=== PATIENT | female | born 1960 | race Caucasian/White ===

== ENCOUNTER 2017-01-14 08:45 | Emergency (ER) | payer OTHER, MEDICARE ==
[~2017-01-14] VITALS: Ht 170.2 cm; Wt 86.4 kg
[2017-01-14 08:50] VITALS: BP 113/73; PULSE 103; RESP 16; O2SAT 97
[2017-01-14] MEDS ORDERED: OMEP20CA11 PO (09:03)
[2017-01-14] MEDS ORDERED: DICL100G30 TOP (09:03)
[2017-01-14] MEDS ORDERED: CYCL10TA9 PO (09:03)
[2017-01-14] MEDS ORDERED: TRAM50TA2 PO (09:03)
[2017-01-14] MEDS ORDERED: GABA-502 PO ×2 (09:03)
--- NOTE | 2017-01-14 09:07 | ED.REPORT ---
HPI-Headache Date of Service January 14, 2017 ED Provider: The patient is a 56 year old female with history of fibromyalgia who presents to the emergency department complaining of a headache that began 5 days ago.She has tried aspirin, Aleve, and Excedrin, all without any relief. She has also noticed nasal congestion and sinus pressure that began about 3 weeks ago. She took Zyrtec on Friday and her headache started later that day. She has also noticed an intermittent subjective fever, tinnitus, and nausea. She denies vomiting, diarrhea, cough, chest pain or shortness of breath. She has had migraines in the past but has not had one in quite some time. Nursing Notes Stated Complaint: HEADACHE Chief Complaint: Neuro Symptoms/ Deficits Nursing Notes Reviewed: Yes Allergies: Coded Allergies: codeine (Verified Allergy, Unknown, 01/14/17) Scheduled Cyclobenzaprine (Cyclobenzaprine) 10 Mg Tablet 10 MG PO HS Gabapentin (Gabapentin) 300 Mg Capsule 300 MG PO QAM Gabapentin (Gabapentin) 300 Mg Capsule 300 MG PO HS Omeprazole (Omeprazole) 20 Mg Capsule.dr 20 MG PO DAILY Scheduled PRN Diclofenac Sodium (Diclofenac Sodium) 1 % Gel..gram. 1 APPLIC TOP TID PRN PRN For Pain Tramadol (Tramadol) 50 Mg Tablet 50 MG PO TID PRN PRN For Pain General Time Seen by MD: 09:06 Chief Complaint Headache Hx Obtained From: Patient Arrived By: Walk-in Sudden in Onset?: No Onset Occurred: 5 days ago Symptom Duration: Since onset Location: : Generalized Quality: Painful Severity: Current: Moderate Severity: Maximum: Moderate Recent Healthcare: No recent hospitalization Similar Sx Previous: No Past Medical History Past Medical History Fibromyalgia on 900 mg Gabapentin, 50 mg Tramadol 2-3 times daily, and Flexeril Migraines GERD Past Surgical History Back surgery Family History Noncontributory Smoking History Unknown if Ever Smoker Social History Other Social History: Good social support, , Local resident Ambulatory Status Independent Review of Systems Constitutional: Reports: Fever (subjective) Ears / Nose / Throat: Reports: Nasal congestion, Sinus problem GI: Reports: Nausea, Denies: Diarrhea, Vomiting Neurologic: Reports: Headache Complete sys rev & neg: except as marked. Respiratory: Denies: Non-productive cough, Prod cough, bloody, Prod cough, brown, Prod cough, clear, Prod cough, green, Prod cough, white, Prod cough, yellow Cardiovascular: Denies: Chest pain Physical Exam Initial Vital Signs Vital Signs (First) Date Time Temp Pulse Resp B/P Pulse Ox O2 Delivery O2 Flow Rate FiO2 01/14/17 08:50 37.7 103 16 113/73 97 Initial VS: Reviewed Respiratory: Breath sounds normal, Clear to auscultation, No respiratory distress Cardiovascular: Regular rate & rhythm, Heart sounds normal, Intact distal pulses Abdomen / GI: Soft, Non-tender, No guarding, No rebound, No distention Lymphatic: No lymphadenopathy Extremities: Vascular intact, Neuro intact, No swelling, No tenderness Skin: Warm, Dry, No cyanosis Psychiatric: Mood/affect normal, Behavior normal, Normal thought content General/Constitutional: Awake, Alert Head / Eyes: Atraumatic, Normocephalic, PERRL, EOMI, No nystagmus, No photophobia, Conjunctiva NL, Temporal arteries NL Neck: Atraumatic, Supple, No meningismus, Full range of motion, No swelling, Non-tender, No masses Neurologic: Oriented X3, Speech NL, No motor deficits, No sensory deficits ENT: Airway patent, Mucous membranes moist Pharynx / Tonsils / Uvula: Negative: Pharyngeal erythema, Tonsillar erythema L , Tonsillar erythema R, Tonsillar exudate L, Tonsillar exudate R, Tonsillar swelling L, Tonsillar swelling R Right Ear / Mastoid: Positive: Fluid behind TM clear, Negative: Tympanic memb perforated, Tympanic membrane bulging, Tympanic membrane red Left Ear / Mastoid: Negative: Tympanic memb perforated, Tympanic memb retracted , Tympanic membrane bulging, Tympanic membrane red Posterior nasal drainage. Maxillary and frontal sinus tenderness. Re-Eval/Medical Decision Source of Hx: Old records Re-Evaluation/Progress : Time of Eval: 09:20 Re-Evaluation/Progress Note: Discussed exam findings, diagnosis, and plan for discharge. Counseled Regarding: Diagnosis, Need for follow-up, When/why to return to ED Discharge & Departure Impression: Primary Impression: Sinus infection Sinusitis location: unspecified location Chronicity: acute Recurrence: non -recurrent Qualified Code: J01.90 - Acute sinusitis, unspecified Additional Impression: Sinus headache Disposition: Home Discharge Condition All VS Reviewed: Yes Condition: Stable Patient Instructions: Sinusitis (ED) Additional Instructions: Thank you for entrusting us with your care today. Your symptoms are consistent with a sinus headache. Here are 5 things that will help you: 1. Stop smoking. 2. Drink plenty of fluids throughout the day. 3. Nasal irrigation. You can use a Neti Pot or a nasal syringe that you can purchase at the store. You should do this 2-3 times each day. This can be uncomfortable but it will help. 4. You should take an over the counter decongestant. Do not take antihistamines , this can make your headache and sinus pressure worse. 5. Take the antibiotic (trimethoprim/sulfamethoxazole was ( as prescribed for 2 weeks. If you are not doing better in 1 week you should be seen again and start a different antibiotic such as Ceftin. If the 2 week pam comes and you are not all the way better you will need to refill the prescription for another week. I also recommend that you take 800 mg ibuprofen every 8 hours for your pain and discomfort. Seek care sooner for any new or concerning symptoms. Referrals: Kimani Calvert MD (PCP) Bird Sena MD Attestation Portions of this note were transcribed by Sylvia Gonzalez. I, Dr. Grewal personally performed the history, physical exam and medical decision-making; I reviewed and confirmed the accuracy of the information in the transcribed note. Signed by: Jeff Cerda, 01/14/2017 at 0940. copies to: Kimani Calvert MD; Bird Sena MD, Kirk H MD January 14, 2017 09:07 Sylvia Gonzalez January 14, 2017 09:08
[2017-01-14] MEDS ORDERED: SULF1TAB7 PO (09:37)
== END 2017-01-14 09:40 | disposition home or self-care (01) ==
LOC: SED 08:45
DX: J01.90 Acute sinusitis, unspecified (principal); R51 Headache; K21.9 Gastro-esophageal reflux disease without esophagitis; Z88.8 Allergy status to other drugs, medicaments and biological substances; M79.7 Fibromyalgia; Z88.5 Allergy status to narcotic agent

== ENCOUNTER 2017-02-10 10:54 | Day surgery (SDC) | payer OTHER, MEDICARE ==
[~2017-02-10] VITALS: Ht 170.2 cm; Wt 87.0 kg
[~2017-02-10 10:54] MED LIST: 0.9% Sodium Chloride 1,000 ML IV SCH; CYCL10TA9 PO; GABA-502 PO; MELA1TAB21 PO; MULT-1018 PO; OMEP20CA11 PO; SENN-133 PO; Sodium Chloride LOK Flush 10 mL Syringe IV PRN; TRAM50TA2 PO; fentaNYL-PF 50 mCg/mL 2 mL Inj IVPUSH PRN
[2017-02-10 11:16] VITALS: BP 116/57; PULSE 83; RESP 16; O2SAT 96
[2017-02-10] MEDS ORDERED: OMEG1CAP56 PO (11:30)
[2017-02-10 12:26] VITALS: BP 105/66; PULSE 86; RESP 12; O2SAT 96
--- NOTE | 2017-02-10 12:31 | PCM.ENDCOL ---
Colonoscopy Date of Service: Feb 10, 2017 Physician Scotty Haynes MD Pre Procedure Diagnosis: Screening colonoscopy Post Procedure Dx & Findings: Polyp hemorrhoids and diverticula Procedure Colonoscopy PROCEDURE IN DETAIL: Prep adequate Withdrawal time 12 minutes After unremarkable rectal examination the Olympus video colonoscope was inserted patient's anal canal and was advanced to cecum. Landmarks were identified including the ileocecal valve and appendiceal orifice. Scope was withdrawn systematically. Visualized colonic mucosa showed healthy shiny mucosa with normal healthy-appearing vasculature. In the transverse colon, there was a 2 mm polyp which was removed completely using cold snare. In the sigmoid colon, there were total of 4 polyps. The sizes varied between 2-4 mm. Using all removed completely using cold snare. Patient had diverticuli from the descending colon to the distal sigmoid colon. There were few and medium size. In the rectum retroflexion was done which showed hemorrhoids. Anal canal was inspected carefully on the way out and hemorrhoids noted. Impression Polyps 5 status post complete removal Diverticuli Hemorrhoids Recommendation Repeat colonoscopy 3 years Diverticular diet Presedation Assessment Risks and Benefits Informed consent was obtained from the patient after all risks and benefits including but not limited to drug reaction, infection, pain, bleeding, perforation, as well as alternatives were discussed. Patient monitoring Continuous pulse oximetry, cardiac monitoring, blood pressure monitoring, IV access, and oxygen at 2L per nasal cannula. Periprocedural Fentanyl: Fentanyl 150mcg Incrementally Midazolam: Midazolam 5mg Incrementally Complications There were no periprocedural complications identified. Post Procedure Plan Post Procedure Recommendations 1. Restrict activities today. 2. Resume normal activities in the morning. 3. Resume medications. 4. Patient informed of normal post procedure side effects as bloating, drowsiness, blood streaking in the stool. 5. average risk CRCS. If colon polyps come back as: -Hyperplastic- can repeat colonoscopy in 10 years -Tubular adenoma- repeat colonoscopy in 5 years -Tubulovillous/villous adenoma- repeat colonoscopy in 3 years -If any dysplasia- return to clinic as soon as possible 6. Please don't hesitate to call me with any questions. Scotty Haynes MD Feb 10, 2017 12:31
[2017-02-10 12:37] VITALS: BP 97/65; PULSE 96; RESP 12; O2SAT 97
[2017-02-10 12:40] VITALS: BP 107/63; PULSE 68; RESP 14; O2SAT 96
--- NOTE | 2017-02-11 10:43 | PATH ---
SURGICAL PATHOLOGY Attending Physician:Scotty Haynes M.D. CASE STATUS: Signed Out PATIENT NAME: DANIEL TRAMMELL PID: [id number] : 1960 DATE COLLECTED:02/10/2017 21:39 SPECIMEN: 1: Colon, Polyp 2: Colon, Polyp CLINICAL HISTORY: 1). TRANSVERSE COLON POLYP 2). SIGMOID COLON POLYPS FINAL DIAGNOSIS: 1.TRANSVERSE COLON POLYP: TUBULAR ADENOMA. 2.SIGMOID COLON POLYPS: TUBULAR ADENOMA INVOLVING MULTIPLE BIOPSY FRAGMENTS. HYPERPLASTIC POLYP INVOLVING SINGLE BIOPSY FRAGMENT. ICD10 D12.5 GROSS DESCRIPTION: The specimen is received in two formalin filled containers labeled with the patient's name. 1). The specimen is sublabeled "transverse colon polyp" and consists of a 0.2 x 0.2 x 0.2 CM portion of tissue which is entirely submitted in cassette 1A. 2). The specimen is sublabeled "sigmoid colon polyps" and consists of 4 portions of tissue and possible debris which aggregate to 0.6 x 0.6 x 0.4 CM. The specimen is entirely submitted in cassette 2A. 02/10/2017 [facility] MICRO DESCRIPTION: See diagnosis. ICD-9 CODES: CPT CODES: 1: 78206 2: 38816 Electronically Signed Out Audi Nunez MD [facility] Pathology [facility] [address], [place] [address] Technical component performed at [facility], [facility] [address], [place], [address]
== END 2017-02-10 23:59 | disposition home or self-care (01) ==
LOC: END 10:54
PROVIDERS: ATTEND Internal Medicine
DX: Z12.11 Encounter for screening for malignant neoplasm of colon (principal); D12.3 Benign neoplasm of transverse colon; D12.5 Benign neoplasm of sigmoid colon; K57.30 Diverticulosis of large intestine without perforation or abscess without bleeding; K64.9 Unspecified hemorrhoids; E78.5 Hyperlipidemia, unspecified; E11.9 Type 2 diabetes mellitus without complications; K21.9 Gastro-esophageal reflux disease without esophagitis; M79.7 Fibromyalgia; F17.210 Nicotine dependence, cigarettes, uncomplicated; Z90.3 Acquired absence of stomach [part of]
CPT/HCPCS: 45385; 99153; G0500; J2250; J3010; J7030

== ENCOUNTER 2017-03-27 08:54 | Day surgery (SDC) | payer OTHER, MEDICARE ==
[~2017-03-27] VITALS: Ht 167.6 cm; Wt 87.8 kg
[2017-03-27] VITALS (10 sets, daily range): BP systolic 92–143; BP diastolic 44–82; PULSE 70–113; RESP 10–23; O2SAT 94–99
[~2017-03-27 08:54] MED LIST changes: -0.9% Sodium Chloride 1,000 ML IV SCH; +DICL100G8 TOPICAL; +Lactated Ringer's 1,000 ML IV SCH; +MELA10TA2 PO; -MELA1TAB21 PO; +OMEG1CAP56 PO; -Sodium Chloride LOK Flush 10 mL Syringe IV PRN; -fentaNYL-PF 50 mCg/mL 2 mL Inj IVPUSH PRN
[2017-03-27] MEDS ORDERED: Dexamethasone 4 mg/mL Inj ONE (08:55)
[2017-03-27] MEDS ORDERED: fentaNYL-PF 50 mCg/mL 2 mL Inj ONE (08:55)
[2017-03-27] MEDS ORDERED: Propofol 10,000 mCg/mL 20 mL Inj ONE (08:55)
--- NOTE | 2017-03-27 10:51 | PCM.HPANE ---
Patient Data Surgeon Admitting Provider: Attending Provider:Marcelo Canada MD Primary Care Physician:Kimani Calvert MD Other Provider:Anabelle Riceingham Anesthesia Reason for Visit Right Breast Cancer Ht/WT & BMI Height (Feet): 5 Height (Inches): 6 Weight (Kilograms): 87.8 Body Mass Index 31.00 Allergies Coded Allergies: varenicline (Verified Allergy, Severe, bad dreams, night walking, hand swelling, 03/25/17) pregabalin (Verified Allergy, Intermediate, SWELLING, 03/25/17) codeine (Verified Allergy, Unknown, 03/25/17) duloxetine (Verified Adverse Reaction, Severe, SEVERE DEPRESSION, 03/25/17) Past Anesthesia History Anesthesia History: Denies:: Abnormal Airway, Anesthesia Reactions, Difficult Intubation, Fam Anesthesia Reaction, Fam Malignant Hypertherm, Malignant Hyperthermia Diabetes History Hx Diabetes?: No MRSA MRSA: No Medications Home Meds Incl Beta Renetta: No Reported Medications Diclofenac Gel (Voltaren Gel)100 Gm Tube1 Applic TOPICAL #1 TUBE 03/25/17 Melatonin 10 Mg Kevlxz15 Mg PO HS 03/11/17 Gracey-3 Fatty Acids/Fish Oil (Gracey 3 1,000 mg Softgel)1 Each Capsule1 Each PO DAILY 02/10/17 Multivitamin (Multi Vitamin Daily)1 Each Tablet1 Each PO DAILY 30 Days Ref 0 02/07/17 Sennosides (Senna)8.6 Mg Tablet8.6 Mg PO PRN For Constipation 02/07/17 Cyclobenzaprine 10 Mg Hmsbex04 Mg PO HS #AD 01/14/17 Gabapentin 300 Mg [id number] Mg PO TID #AD 01/14/17 Omeprazole 20 Mg Capsule.dr20 Mg PO DAILY #AD 01/14/17 Tramadol 50 Mg Owazuz69 Mg PO qd-tid PRN For Pain #AD 01/14/17 History History of ENT Problems?: No HEENT History: Positive for:: TMJ Denies:: Abnormal Airway Cataracts Difficult Intubation Dysphagia Glaucoma Hearing Problem Sinus Problem Denture Type: Full- Upper Full- Lower Teeth Condition: No Teeth Hx of Heart Problems?: No Cardiovascular History: Denies:: AICD Abdominal Aortic Aneurism Atrial Fibrillation Cardiac Surgery Chest Pain Congestive Heart Failure Coronary Artery Disease Edema Heart Murmur Hypertension Irregular Heartbeat Pacemaker Peripheral Vascular Rheumatic Fever Thrombophlebitis Valvular Heart Disease Hx of Respiratory Problem?: No Respiratory History: Denies:: Asthma COPD Chest Surgery Cough Dyspnea Emphysema Hemoptysis Pneumonia Pulmonary Embolism Tuberculosis Use of C-PAP Machine Use of Inhalers / NEBS Hx Neurologic Problems?: Yes Neurological History: Positive for:: Dizziness Denies:: Alzheimer's Disease CVA Dementia Headaches Multiple Sclerosis Parkinson's Disease Seizures TIA Hx of GI Problems?: Yes Hx of Problems?: No Genitourinary History: Denies:: HX of Hemodialysis Kidney Stones Urinary Tract Infection HX of Peritoneal Dialysis: No Female Hx: Positive for:: Endometriosis Problems with Breasts? (reason for admission) Denies:: Currently (MENOPAUSE) Pelvic Inflammatory Skin History: Denies:: History Skin Disorders? Pressure Ulcers Hx Musculoskeletal Problems?: Yes Musculoskeletal History: Positive for:: Back Injury (L5- S1 Fusion 2016) Fibromyalgia Rheumatoid Arthritis Denies:: Degenerative Joint Joint Replacement Musculoskeletal Trauma Myasthenia Gravis Osteoarthritis Systemic Lupus Hx of Psycho/Social Problems?: No Psycho Social History: Denies:: Anxiety Bipolar Disorder Hx Depression Hx Surgeries?: Yes Hx Any Other Health Problems?: No Other History: Positive for:: Cancer (Breast) Hospitalization Denies:: Endocrine Disease Thyroid Disease History Blood Transfusions: Positive for:: Accept Blood Products? Denies:: Blood Transfusions Hx Diabetes: No Hx Alcohol Use: NoHx Substance Use: Yes (CANNABIS PRN) Smoking Status: Former Smoker Have You Smoked inLast 12 mo: No Stop/Bang S-Snoring: Do You Snore Loudly: No T-Tired: feel tired, fatigued: Yes O-Obsered: Observed not breath: No P-Blood Pressure: treated: No B- Body Mass Index > 35 kg/m2: No A- Age over 50: Yes N- Neck Large Circumference: No G- Gender Male: No BRAD Total Score: 2 Risk Assessment Category Category 1A: Patient has history of documented sleep apnea, and HAS NOT received any narcotic, sedative or anesthesia administration during this stay. Category 1B: Patient has history of documented sleep apnea, and HAS received any narcotic , sedative or anesthesia administration during this stay Category 2: Patient has SUSPECTED Obstructive Sleep Apnea, and HAS received any narcotic , sedative or anesthesia administration during this stay. Category 3: Patient has SUSPECTED Obstructive Sleep Apnea and HAS NOT received narcotic, sedative or anesthesia administration during this stay. Category 4: Outpatient in Procedural Areas with known sleep apnea or who screen positive for High Risk via the STOP/BANG questionnaire. Exam Exam Vital Signs Vital Signs Date Time Temp Pulse Resp B/P Pulse Ox O2 Delivery O2 Flow Rate FiO2 03/27/17 09:15 36.2 72 18 92/44 95 Room Air General Appearance: Alert, Oriented X3, Cooperative HEENT/AIRWAY: MP 2 Lungs: Clear to Auscultation Heart: Exam Unremarkable Plan Impression Patient chart reviewed, patient interviewed and anesthestic plan with risks, benefits, and alternatives discussed, and informed consent obtained. ASA Physical Status: ASA2 Mod Systemic Disease Anesthetic Plan: GA Bene/Risks/Altern/Consents: Yes HP Complete Prior to Induction: Yes Dakota Kaplan MD Mar 27, 2017 10:51
[2017-03-27] MEDS ORDERED: Bupivacaine-MPF 0.5% 30 mL Inj INFILTRATE ONE (11:44)
[2017-03-27] MEDS ORDERED: Lactated Ringer's 1,000 ML IV ONE (12:12)
--- NOTE | 2017-03-27 12:23 | PCM.DISURG ---
Surgical Discharge Instruction Date of Service Mar 27, 2017 Dates of Hospitalization Date of Hospital Admission Providers Admitting Physician: Primary Care Physician: Kimani Calvert MD Attending Physician: Marcelo Canada MD Discharge Diagnosis Discharge Diagnosis Right breast cancer Diet Discharge Diet: No restrictions Activity Discharge Activity-General: No restrictions Dressing and Incisional Care Dressing Care: Allow Steri Stripes to fall off (or remove them in 10 days if they have not fallen off), Remove outer dressing after 24 hrs Hygiene: May shower after (24 hours) Follow Up Plan Follow Up Plan With Dr. Canada in 2 weeks for a wound check and review of pathology Call your provider for: Fever (over 101.5), Vomiting, Discharge @ incision, pus discharge Marcelo Canada MD Mar 27, 2017 12:23
[2017-03-27] MEDS ORDERED: HYDROcodone-APAP 5-325 mg Tablet PO PRN (12:25)
--- NOTE | 2017-03-27 12:30 | PCM.SURGOP ---
Surgical Operative Report Date of Service: Mar 27, 2017 Pre Operative Diagnosis Right breast cancer Post Operative Diagnosis Same Procedure: Wire localized right partial mastectomy, right axillary sentinel lymph node biopsy Surgeon and Computer Repair Instructor: Surgeon: Marcelo Canada MD Assistants: Pancho Curry DO PGY-1 Indication for Procedure 57-year-old woman who was found to have an 8 mm mass in the right breast central to the nipple on screening mammograms. Ultrasound showed a 1.1 cm mass. Her biopsy demonstrated a well-differentiated invasive ductal carcinoma, ER/AR positive, [id number]. MRI showed no additional disease. After discussion of risks and benefits, she agreed to proceed with wire localized right partial mastectomy, right axillary sentinel lymph node biopsy. Findings: The lesion was successfully localized with the wire. There was a single sentinel lymph node with an ex vivo count of 864, with a background count of 14. Procedure Details Preoperatively, the patient underwent right breast wire localization in the [facility]. In the preoperative area, she underwent breast radiotracer injection for sentinel node identification. She was then brought to the operating room where she underwent smooth induction of general anesthesia with an LMA. She was placed in the supine position with the right arm out, and was prepped and draped in wide sterile fashion. There was an excellent radiotracer signal in the right axilla, so methylene blue was not used. A procedural pause was performed according to the SCOAP checklist, and all were found to be in agreement. A radial incision was made from the areolar border to the wire entry site in the right lateral breast. Dissection was carried through the superficial breast parenchyma with electrocautery as skin flaps were raised superiorly and inferiorly. Circumferential dissection was then carried out using the wire as a guide. The wire was not encountered during dissection, but small hematoma was encountered just beyond the tip of the wire. Right breast tissue was excised, oriented with suture, and a specimen radiograph was obtained. This confirmed that the mammographic lesion and the clip had been successfully localized. That tissue was sent for permanent pathology labeled as right breast tissue. Because the hematoma from the wire tip had been encountered at the medial posterior aspect of dissection, a new posterior medial margin was obtained by grasping that tissue with a Kailee clamp, and excising approximately 1 cm of tissue in thickness from the posterior medial aspect of the cavity. That tissue was oriented with suture, and sent for permanent pathology. Hemostasis was adequate. The cavity was marked with hemoclips circumferentially. The breast parenchyma was closed with interrupted 3-0 Vicryl suture. A separate curvilinear incision was made at the inferior border of the hairbearing skin in the right axilla. Dissection was carried down through the subcutaneous tissue with electrocautery until the axillary fascia was incised. Using the gamma probe as a guide, the area of maximum radioactivity was dissected free from the surrounding tissue, which corresponded to a single sentinel node. It was normal in size. It was relatively soft. Ex vivo, the gamma count was 864. The background count in the right axilla was 14. That tissue was sent for permanent pathology, labeled as right axillary sentinel node. Hemostasis was adequate. The axillary fascia was closed with an interrupted 3-0 Vicryl suture. Both skin incisions were closed with running 4-0 Vicryl subcuticular suture. Steri-Strips and sterile dressings were applied. At the end the case all needle and sponge counts were correct 2. The patient was awakened from anesthesia without difficulty, and taken to the recovery room in satisfactory condition, having tolerated the procedure well. Complications There were no periprocedural complications identified. Surgical Specimen Removed: Yes Specimen sent to Pathology: Yes Surgical Specimen description: Right breast tissue. Right breast posterior medial margin. Right axillary sentinel lymph node. Anesthetic Plan: GA Grafts, Implants: None Output, Estimated Blood Loss: 20 Blood Administration during wilson: No Drains: None Catheters: None copies to: Kimani Calvert MD; Jacky Lucas MD, Joshua D MD Mar 27, 2017 12:30
[2017-03-27] MEDS ORDERED: Dexamethasone 4 mg/mL Inj IVPUSH PRN (12:35)
[2017-03-27] MEDS ORDERED: Lactated Ringer's 1,000 ML IV SCH (12:35)
[2017-03-27] MEDS ORDERED: Phenylephrine 10,000 mCg/mL Inj IVPUSH PRN (12:35)
[2017-03-27] MEDS ORDERED: MetoCLOpramide 5 mg/mL 2 mL Inj IVPUSH PRN (12:35)
[2017-03-27] MEDS ORDERED: Ondansetron 2 mg/mL 2 mL Inj IVPUSH PRN (12:35)
[2017-03-27] MEDS ORDERED: EPHEDrine Sulfate 50 mg/mL Inj IVPUSH PRN (12:35)
[2017-03-27] MEDS ORDERED: fentaNYL-PF 50 mCg/mL 2 mL Inj IVPUSH PRN (12:35)
[2017-03-27] MEDS ORDERED: Lactated Ringer's 500 ML IV PRN (12:35)
[2017-03-27] MEDS: HYDROmorphone 1 mg/mL Inj IVPUSH PRN ×2 (12:47→13:01)
--- NOTE | 2017-03-27 12:56 | DRSVH ---
PROCEDURE: NM SENTINEL NODE INJECTION ONLY, RIGHT BREAST RADIOPHARMACEUTICAL: 0.5 mCi Millipore filtered Tc-99m sulfur colloid. INDICATIONS: right breast cancer PROCEDURE: The indications, alternatives, benefits, risks, and complications of the procedure were explained to the patient. Written informed consent was obtained and placed in the chart. The area around the nip ple was prepped and draped in a sterile fashion. Tc-99m sulfur colloid was injected in the outer edg e of the areola in the right breast. No image was obtained. IMPRESSION: Administration of radiotracer into the right breast periareolar region for intra-operati ve sentinel lymph node localization. Dictated by: Prakash Spivey M.D. on 03/27/2017 at 12:54 Approved by: Prakash Spivey M.D. on 03/27/2017 at 12:55
--- NOTE | 2017-03-27 14:05 | PCM.ANEP1 ---
Post Anesthesia PACU Phase 1 Assessment Vital Signs Vital Signs Date Time Temp Pulse Resp B/P Pulse Ox O2 Delivery O2 Flow Rate FiO2 03/27/17 13:28 36.5 89 14 117/51 96 Room Air 03/27/17 13:20 86 10 111/47 96 Room Air 03/27/17 13:15 36.3 89 16 132/54 96 Room Air 03/27/17 13:00 92 15 129/63 95 Room Air 03/27/17 12:45 98 14 108/64 96 Room Air 03/27/17 12:40 105 20 130/68 97 Room Air 03/27/17 12:35 109 23 143/56 98 Room Air 03/27/17 12:30 36.1 113 15 132/82 99 Simple Mask 8 03/27/17 09:15 36.2 72 18 92/44 95 Room Air Anesthetic Administered: GA Level of Alertness: Awake, talking ORDONEZ's with Equal Strength: Yes Pain: No Nausea or Vomiting: No CV Function & Hydration Stable: Yes Airway Device: Oralpharangeal Airway Oxygen Delivery: Simple Mask Lungs: Clear to Auscultation Dermatome Level: Full Sensation PACU Phase 2 Assessment Complications: No Follow up Care: No Patient Instructions Provided: N/A Dakota Kaplan MD Mar 27, 2017 14:05
--- NOTE | 2017-03-28 07:21 | DRSVH ---
SPECIMEN: 03/27/2017 CLINICAL: Breast specimen right. Correlation is made to exams dated: 03/27/2017 localization, 03/27/2017 mammogram, 02/17/2017 mammogram, 02/11/2017 mammogram, and 01/07/2017 mammogram - Breast [facility]. Specimen radiograph containing the post biopsy marking clip, targeted mass, and a portion of the pam ing wire. IMPRESSION: SPECIMEN Specimen radiograph containing the post biopsy marking clip, targeted mass, and a portion of the mar hudson wire. This exam was interpreted at Station ID: [id number]. Surya Camejo M.D. cj/:03/27/2017 13:06:35 Additional referring physicians: KAROLINA ZHANG SANDEEP BALSA
== END 2017-03-27 23:59 | disposition home or self-care (01) ==
LOC: SAS 08:54
PROVIDERS: ATTEND Student in an Organized Health Care Education/Training Program
DX: C50.911 Malignant neoplasm of unspecified site of right female breast (principal); R42 Dizziness and giddiness; M26.609 Unspecified temporomandibular joint disorder, unspecified side; N80.9 Endometriosis, unspecified; F12.10 Cannabis abuse, uncomplicated; Z17.0 Estrogen receptor positive status [ER+]; Z87.891 Personal history of nicotine dependence; Z79.899 Other long term (current) drug therapy
CPT/HCPCS: 19301; 38525; 38792; 76098; A9541; J1100; J1170; J2250; J2405; J2704; J2765; J3010; J7120